=== PATIENT | female | born 1985 | race Caucasian/White ===

== ENCOUNTER 2017-09-04 05:35 | Inpatient (IN) | payer MEDICAID ==
[2017-09-04] MEDS ORDERED: cefOXitin 2 GM in Sodium Chloride 0.9% 50 ML IV ONE (06:00)
[2017-09-04] MEDS ORDERED: Celecoxib 200 MG Cap PO ONE (06:00)
[2017-09-04] MEDS ORDERED: Gabapentin 300 MG Cap PO ONE (06:00)
[2017-09-04] MEDS ORDERED: Acetaminophen 500 MG Tab PO ONE (06:00)
[2017-09-04] MEDS ORDERED: Scopolamine 1.5 MG Transdermal Patch TOP SCH (06:00)
[2017-09-04] MEDS: Dextrose 5%-Lactated Ringers 1,000 ML IV SCH ×3 (06:30→23:55)
[2017-09-04] MEDS ORDERED: Ondansetron 4 MG/2 ML SDV ONE (06:49)
[2017-09-04] MEDS ORDERED: Rocuronium 50 MG/5 ML Vial ONE (06:49)
[2017-09-04] MEDS ORDERED: Dexamethasone 4 MG/ML SDV ONE (06:49)
[2017-09-04] MEDS ORDERED: Propofol 200 MG/20 ML SDV ONE (06:49)
[2017-09-04] MEDS: cefOXitin 2 GM in Premix Bag 1 BAG IV ONE ×2 (07:10→10:56)
[2017-09-04] MEDS ORDERED: Ketamine 500 MG/5 ML MDV IV SCH (07:15)
[2017-09-04] MEDS ORDERED: Ropivacaine 60 ML, Dexamethasone 8 MG, EPINEPHrine 0.4 MG, Sodium Chloride 0.9% 17.6 ML NERVRT SCH ×4 (07:15)
[2017-09-04] MEDS ORDERED: Lidocaine 2% 100 MG/5 ML Syringe IVPUSH ONE (07:15)
[2017-09-04] MEDS ORDERED: Neostigmine Methylsulfate 1 MG/ML 5 ML Syringe ONE (07:50)
[2017-09-04] MEDS ORDERED: Succinylcholine/Normal Saline 200 MG/10 ML Syringe ONE (07:50)
[2017-09-04] MEDS: cefOXitin 2 GM Vial ONE ×2 (08:03→08:40)
[2017-09-04] MEDS ORDERED: Lactated Ringers 1,000 ML ONE (08:37)
[2017-09-04] MEDS: Lidocaine 0.4%/D5W 2 GM/500 ML BAG IV SCH ×2 (10:56→23:55)
[2017-09-04] MEDS ORDERED: Metoclopramide 10 MG/2 ML SDV IVPUSH PRN (11:00)
[2017-09-04] MEDS ORDERED: Labetalol 20 MG/4 ML Syringe IVPUSH PRN (11:00)
[2017-09-04] MEDS ORDERED: Ondansetron 4 MG/2 ML SDV IVPUSH PRN (11:00)
[2017-09-04] MEDS ORDERED: hydrOXYzine HCl 100 MG/2 ML SDV IM PRN (11:00)
[2017-09-04] MEDS ORDERED: diphenhydrAMINE 50 MG/ML SDV IVPUSH PRN (11:00)
[2017-09-04] MEDS ORDERED: Pantoprazole 40 MG Vial IVPUSH SCH (12:00)
[2017-09-04] MEDS: Acetaminophen Soln 650 MG/20.3 ML UD Cup PO SCH ×3 (12:04→23:00)
[2017-09-04] MEDS: cefOXitin 2 GM in Sodium Chloride 0.9% 50 ML IV SCH ×2 (12:04→17:30)
[2017-09-04] MEDS: SCOPOLAMINE PATCH CHECK TOP SCH (13:30)
[2017-09-04] MEDS: Gabapentin 250 MG/5 ML Solution ML 470 ML Bottle PO SCH ×2 (14:11→21:19)
[2017-09-04] MEDS ORDERED: MVI, Adult with Vitamin K 10 ML, Thiamine 200 MG, Chromium/Copper/Mang/Selen/Zn 1 ML in... IV SCH ×4 (16:00)
[2017-09-04] MEDS: Heparin Sodium 5,000 Units/ML Vial SUBCUT SCH (17:21)
[2017-09-05] MEDS ORDERED: Iohexol 647 MG/ML 50 ML SDV PO SCH (00:30)
[2017-09-05] MEDS: cefOXitin 2 GM in Sodium Chloride 0.9% 50 ML IV SCH (01:49)
[2017-09-05] MEDS: Heparin Sodium 5,000 Units/ML Vial SUBCUT SCH ×2 (05:27→17:56)
[2017-09-05] MEDS: Acetaminophen Soln 650 MG/20.3 ML UD Cup PO SCH ×3 (05:27→17:59)
[2017-09-05] MEDS: Dextrose 5%-Lactated Ringers 1,000 ML IV SCH (06:53)
[2017-09-05] MEDS ORDERED: Cyclobenzaprine 10 MG Tab PO PRN (08:24)
[2017-09-05] MEDS: SCOPOLAMINE PATCH CHECK TOP SCH (08:25)
[2017-09-05] MEDS: Celecoxib 200 MG Cap PO SCH (08:25)
[2017-09-05] MEDS: Gabapentin 250 MG/5 ML Solution ML 470 ML Bottle PO SCH ×3 (08:25→20:23)
[2017-09-05] MEDS ORDERED: Dextrose 5%-Lactated Ringers 1,000 ML IV SCH (08:30)
--- NOTE | 2017-09-05 09:07 | CR ---
UGI wo KUB HISTORY: Evaluate Mo-en-Y. COMPARISON: None FINDINGS: Contrast is seen within the small gastric remnant. Surgical drain present in this region. T here is no evidence for obstruction. No extravasation of contrast. No evidence for complication.
[2017-09-05] MEDS ORDERED: Pantoprazole 40 MG Delayed-Release Granules 1 Packet PO SCH (11:30)
[2017-09-05] MEDS ORDERED: MVI, Adult with Vitamin K 10 ML, Thiamine 200 MG, Chromium/Copper/Mang/Selen/Zn 1 ML in... IV SCH ×4 (16:00)
--- NOTE | 2017-09-05 16:48 | PN ---
DATE OF SERVICE: 09/05/2017 The patient has been afebrile with stable vital signs. Oral intake has been satisfactory and urine output is good. X-ray looks good and pain control is satisfactory with the present regimen. We will go down to 100 mL/hour on IV rate. Go up to step-2 diet today and maximize activity and work with pulmonary toilet. Darius Conrad MD /[id number]
[2017-09-05] MEDS ORDERED: Metoclopramide 10 MG Tab PO PRN (17:00)
[2017-09-05] MEDS ORDERED: Ondansetron 4 MG Tab.DIS PO PRN (17:00)
[2017-09-05] MEDS ORDERED: diphenhydrAMINE 25 MG/10 ML CUP PO PRN (17:00)
[2017-09-06] MEDS: Acetaminophen Soln 650 MG/20.3 ML UD Cup PO SCH ×3 (00:36→12:03)
[2017-09-06] MEDS: Heparin Sodium 5,000 Units/ML Vial SUBCUT SCH (05:36)
[2017-09-06] MEDS ORDERED: Ondansetron 4 MG Tab.DIS PO PRN (06:26)
[2017-09-06] MEDS: Celecoxib 200 MG Cap PO SCH (07:47)
[2017-09-06] MEDS: SCOPOLAMINE PATCH CHECK TOP SCH (08:46)
[2017-09-06] MEDS: Gabapentin 250 MG/5 ML Solution ML 470 ML Bottle PO SCH (08:46)
[2017-09-06] MEDS ORDERED: Cyanocobalamin (Vitamin B12) 1,000 MCG/ML SDV IM ONE (09:00)
--- NOTE | 2017-09-07 01:26 | DISCH ---
ADMISSION DIAGNOSES: Morbid obesity, major depression, vitamin D deficiency, chronic knee pain, and chronic back pain. DISCHARGE DIAGNOSES: Laparoscopic Mo-en-Y gastric bypass surgery, liver biopsy, repair of diaphragmatic hernia, for morbid obesity, hepatomegaly, and diaphragmatic hernia. Date is 09/04/2017. Surgeon, Darius Conrad M.D. HISTORY: Jaimie Ferreira is a pleasant 32-year-old female with longstanding history of morbid obesity and increase in comorbidities. After preoperative evaluation and discussion of possible risks and possible complications, she wished to proceed with surgical procedure. HOSPITAL COURSE: Jaimie had her surgery on 09/04/2017. She had no operative complications. On postop day #1, her upper GI was normal. She was started on step-2 gastric bypass diet. On postop day #2, her activity was good. She received adequate education. Pain was well managed, and she was able to be discharged to home. PHYSICAL EXAMINATION: GENERAL: Jaimie Ferreira is a 32-year-old female. VITAL SIGNS: Height is 5 feet 6 inches, weight is 270 pounds, BMI is 43. TPR is 97.1, 78, 16. Blood pressure 102/51. HEENT: Negative. NECK: Supple. HEART: Regular rate and rhythm. LUNGS: Clear. ABDOMEN: Incisions look good, 4 x 4 over SHAMEKA drain sites and abdominal binder has been on. EXTREMITIES: Without peripheral edema. DISPOSITION: Discharged to home. CONDITION: Stable and improving. FOLLOWUP APPOINTMENT: With Kim Nichols PA-C, on 09/12/2017 at 10:00 a.m. at [place], [place]. DIET: Drink 8 to 10 glasses of water. Step-2 gastric bypass diet without cereal. ACTIVITY: As tolerated. No lifting greater than 10 pounds for 2 weeks. Activity, walk inside your home 6 times daily. Shower/bathing, may shower. Keep operative site clean and dry. Wear abdominal binder for 2 weeks and then as tolerated. Notify provider if any fever, increased pain, nausea or vomiting. SPECIAL INSTRUCTION: Use incentive spirometer 10 times every hour while awake, keep a record of everything you eat and drink and bring to clinic appointments. HOME MEDICATIONS: 1. Tylenol 650 mg q.6 hours, scheduled for pain for 2 weeks. 2. Celebrex 200 mg oral daily for 2 weeks. 3. Zofran 4 mg q.4 hours p.r.n. nausea, #30.
--- NOTE | 2017-09-07 09:21 | OR ---
DATE OF PROCEDURE: 09/04/2017 PREOPERATIVE DIAGNOSIS: Morbid obesity. POSTOPERATIVE DIAGNOSES: 1. Morbid obesity. 2. Marked hepatomegaly. 3. Paraesophageal diaphragmatic hernia. OPERATIVE PROCEDURE: 1. Laparoscopic Mo-en-Y gastric bypass with long limb gastroenterostomy (06186). 2. Gwyn-Cut needle liver biopsy (81330). 3. Repair of paraesophageal diaphragmatic hernia (98941). ANESTHESIA: General. CREDIT UNION EXAMINER: Kim Nichols PA-C and TENA Jean Baptiste3. INDICATION FOR PROCEDURE: This is a 32-year-old presenting with longstanding morbid obesity and increasingly significant comorbidities. After preoperative evaluation and discussion, she wished to proceed with a gastric bypass procedure. Potential risks including bleeding, infection, leaks from various GI tract closures, problems with bowel obstruction over time as well as possibility of cardiopulmonary, septic, or hemorrhagic complications leading to were discussed, and the patient wishes to proceed. DETAILS OF PROCEDURE: The patient was taken to the operating room. After general endotracheal anesthesia was induced, she was placed in a lithotomy position. The orogastric tube was placed and the abdomen prepped and draped. At 15 cm inferior and 5 cm left of xiphoid process, transverse incision was made and the peritoneal cavity entered under direct vision with an Optiview trocar, inflated to 15 mmHg pressure of CO2. Laparoscope was reinserted. No underlying trocar insertion site injuries were seen. Following this, bilateral subcostal transversus abdominis plane blocks were placed using the standard solution with the needle tip being directly visualized in the transversus abdominis plane during the injection process. Following this, 5 additional trocars were placed across the upper mid abdomen and general exploration was undertaken. The patient was noted to have marked hepatomegaly with liver volume being roughly 2 to 3 times normal, liver grossly fatty infiltrated. Gwyn-Cut needle biopsy was obtained from the left lobe of the liver. Minimal bleeding from the biopsy sites was seen. The omentum was then divided in the midline up to the level of the transverse colon. This allowed identification of the small bowel with the ligament of Treitz. Small bowel was then traced out 200 cm distal to that point where the small bowel was divided with a POLLY stapler. Small bowel was then traced out an additional 150 cm where the [id number] enteroenterostomy was accomplished with internal firing of the Endo-POLLY 60 mm stapler. Common opening was then closed transversely with the same stapler, angles anastomosed, and mesenteric defect approximated with some 0 Ethibond stitch along with fibrin sealant. The divided end of the Mo limb was then from the mesentery for a few centimeters, which allowed an antecolic positioning of the Mo limb up to the level of the gastroesophageal junction without tension. The patient's liver was such that, we at this point placed an additional 5 mm trocar to allow adequate retraction. This was placed somewhat inferior to the original mid subcostal trocar and with that adequate visualization of the esophagogastric junction was made possible. The patient was noted to have a moderate-sized paraesophageal diaphragmatic hernia. The peritoneum overlying this was incised and reflected downward and the hernia then repaired with a series of 0 Ethibond sutures reinforced with PTFE pledgets in an anterior location. The gastrointestinal catheter was inflated 15 mL and pulled up snugly against the EG junction. Gastric wall over the apex balloon was then marked with electrocautery, and balloon catheter deflated and pulled up into the esophagus. The lesser omental tissue adjacent to the gastric cardia was incised allowing dissection of the stomach behind that area. The pouch formation was initiated with a transverse firing of the POLLY stapler at the cauterized marcelo in the transverse colon. The pouch was then completed with additional firings of POLLY stapler up to and through the angle of His. Upon completion of the pouch, both staple lines were noted to be intact. The anvil of a 25 mm EEA stapler was attached to Gillespie sump type tube; taken down through the mouth and taken through small opening in the gastric pouch allowing the anvil likewise to be pulled down to within the gastric pouch. The divided end of the Mo limb was then opened and the main body of the EEA stapler passed several centimeters in to the lumen of the small bowel, brought up to the anvil and united with it, thus creating the gastrojejunostomy. Upon removal of stapler, double doughnuts of mucosa were noted. Then the small bowel was closed off with a vascular staple line. The gastrojejunostomy was reinforced with some 3-0 Vicryl seromuscular stitch along with fibrin sealant. Leak test was accomplished with injection of 120 mL of air in the gastric pouch while submerged in the cefoxitin-containing saline solution. No leaks were identified. Two Vineet-Casper drains were placed adjacent to gastrojejunostomy, taken out through subcostal trocar sites with no further problems noted. The trocars were removed, peritoneal cavity deflated. The incisions were closed with 4-0 Vicryl skin stitch, was also used to fix the drain, and the patient was taken to the recovery room in satisfactory condition. There were no evident complications. Physician assistant family teacher, Kim Nichols, played an essential role in assisting in this case, helping to position the patient, retract structures as needed, as well as suturing and cutting sutures when indicated. Her presence improved patient safety and decreased operative time. Darius Conrad MD /[id number]
== END 2017-09-06 13:00 | disposition home or self-care (01) | DRG 621 ==
LOC: JP.SDS 05:35 → JP.SDSSCHI 05:35 → EDSTATUS 07:30 → JP.2SS 09:10
PROVIDERS: ADMIT Surgery; ATTEND Surgery
PROC: 0D164ZA Bypass Stomach to Jejunum, Percutaneous Endoscopic Approach (ICD-10-PCS; principal; 2017-09-04)
PROC: 0FB24ZX Excision of Left Lobe Liver, Percutaneous Endoscopic Approach, Diagnostic (ICD-10-PCS; 2017-09-04)
PROC: 0BQT4ZZ Repair Diaphragm, Percutaneous Endoscopic Approach (ICD-10-PCS; 2017-09-04)
PROC: 3E0T3BZ Introduction of Anesthetic Agent into Peripheral Nerves and Plexi, Percutaneous Approach (ICD-10-PCS; 2017-09-04)
DX: E66.01 Morbid (severe) obesity due to excess calories (principal); Z68.41 Body mass index [BMI] 40.0-44.9, adult; R16.0 Hepatomegaly, not elsewhere classified; K44.9 Diaphragmatic hernia without obstruction or gangrene; K76.0 Fatty (change of) liver, not elsewhere classified; M54.9 Dorsalgia, unspecified; G89.29 Other chronic pain; M25.562 Pain in left knee; M25.561 Pain in right knee
CPT/HCPCS: 36415; 74240; 74240-26; 80053; 82962; 83735; 84100; 85027; 86850; 86900; 86901; 88307; 88313; 94762; A9270-GY; C9113; J0171; J0694; J1100; J1644; J2001; J2405; J2704; J2795; J3010; J3410; J3411; J3420; J7030; J7040; J7042; J7050; J7120; Q9967